=== PATIENT | female | born 1940 | race Hispanic/Latino ===

== ENCOUNTER 2018-11-05 14:19 | Emergency (ER) | payer MEDICARE ==
[~2018-11-05] VITALS: Ht 160 cm; Wt 64.9 kg
--- OUTSIDE RECORDS SUMMARY | 2018-11-05 14:21 | XMS REPORT | Summary of Care ---
Author Author JOEL PETIT M.D. Organization Unknown Address Unknown Phone Unavailable Care Team Providers Care Exhaust Emissions Automotive Technician Name Role Phone JOEL PETIT M.D. Unavailable Unavailable Liz Urban M.A. Unavailable Unavailable DAMASO EDWARDS AZEPIFANIO Unavailable Unavailable Unavailable Unavailable Functional Status Name Dates Details Functional status health issues are not documented Status: Name Dates Details Cognitive status health issues are not documented Status: Problems Name Dates Details Bilateral carpal tunnel syndrome (354.0, G56.03) Status: Active Medications Name Dates Details Toy Aspirin TABS Active Amlodipine-Atorvastatin 5-10 MG Oral Tablet * Refills: 0 Active Carvedilol TABS * Refills: 0 Active Acetaminophen-Codeine #3 300-30 MG Oral Tablet TAKE 1 TABLET EVERY 4 TO 6 HOURS NEEDED. * Quantity: 40 Refills: 0 JOEL PETIT M.D. * Start : 06-May-2017 Active Allergies and Adverse Reactions Name Dates Details No Known Drug Allergies (Allergy) Status: Active Procedures Procedure Dates Details History of ankle surgery Completed History of bypass Completed Immunization Name Dates Details Immunizations not documented Family History Name Dates Details Family history of cardiac disorder (V17.49, Z82.49) Status: Active Family history of diabetes mellitus (V18.0, Z83.3) Status: Active Name Dates Details Family history of cardiac disorder (V17.49, Z82.49) Status: Active Family history of diabetes mellitus (V18.0, Z83.3) Status: Active Social History Name Dates Details - Status: Name Dates Details Never smoker Vital Signs Date Test Result Details 5-[id number]-183200:00 BP Systolic 143 mm[Hg] Status: BP Diastolic 61 mm[Hg] Status: Heart Rate 70 /min Status: Results Date Description Value Details Results not documented Plan of Care Name Dates Details Planned Observations Planned Goals not documented Interventions Provided Medication Changes* Acetaminophen-Codeine #3 300-30 MG Oral Tablet - Start Instructions Name Dates Details Instructions not documented Encounters Appointment; JOEL PETIT M.D. Encounter Diagnosis: Problem not documented On: 24-Mar-2017 9:30 Appointment; ABELINO MCKENZIE M.D. Encounter Diagnosis: Problem not documented On: 01-Apr-2017 10:15 Appointment; JOEL PETIT M.D. Encounter Diagnosis: Problem not documented On: 14-Apr-2017 10:00 Appointment; JOEL PETIT M.D. Encounter Diagnosis: Problem not documented On: 05-May-2017 13:00
[2018-11-05 15:07] LABS: BILIRUBIN,URINE NEGATIVE (NEGATIVE); CLARITY,URINE SL CLOUDY (CLEAR); COLOR,URINE YELLOW (YELLOW); KETONES,URINE 1+ (NEGATIVE); LEUKOCYTE ESTERASE ,URINE TRACE (NEGATIVE); NITRITE,URINE NEGATIVE (NEGATIVE); PROTEIN,URINE DIPSTICK 1+ (NEGATIVE); URINE UROBILINOGEN 1 mg/dL (0.2 - 1)
[2018-11-05 15:19] LABS: WBC,URINE (MAN) 0-5 /HPF (0-5)
[2018-11-05 15:20] LABS: BACTERIA,URINE MODERATE /HPF; EPITHELIAL CELLS,URINE MODERATE /LPF
--- NOTE | 2018-11-05 15:32 | Diagnostic Imaging Report ---
EXAMINATION: PA and lateral views of the chest. COMPARISON: None CLINICAL HISTORY: Concern for pneumonia DISCUSSION: Lungs are well-inflated and without focal airspace consolidation, pleural effusion, or pneumothorax. Cardiomediastinal contour and pulmonary vasculature are within normal limits. Postsurgical changes with multiple median sternotomy wires. IMPRESSION: No consolidative pneumonia per clinical query. Signed by: Dr. Isac Wells M.D. on 11/05/2018 3:29 PM
--- NOTE | 2018-11-05 15:47 | NUR ---
PT STATES SHE TOOK HER BP MEDS TODAY
[2018-11-05 15:48] LABS: BASOPHILS % 0.5 % (0.0-1.0); EOSINOPHILS # (AUTO) 0.1 (0.0-0.4); EOSINOPHILS % 1.1 % (0.0-6.0); HEMATOCRIT 34.9 % (34.2-44.1); HEMOGLOBIN 11.5 g/dL (12.0-16.0); LYMPHOCYTES # (AUTO) 1.8 (1.0-3.2); MEAN CORPUSCULAR HEMOGLOBIN 28.8 pg (28-32); MEAN CORPUSCULAR VOLUME 87.3 fL (81-99); MONOCYTES # (AUTO) 1.1 (0.2-0.8); MONOCYTES % 13.3 % (4.4-11.3); NEUTROPHILS # (AUTO) 5.4 (2.1-6.9); NEUTROPHILS % 63.5 % (38.7-80.0); PLATELET COUNT 210 x10e3/uL (140-360); RED CELL DISTRIBUTION WIDTH 12.9 % (11.7-14.4)
[2018-11-05 15:58] LABS: INR 0.95; PROTHROMBIN TIME 13.2 seconds (11.9-14.5)
[2018-11-05 15:59] LABS: PARTIAL THROMBOPLASTIN TIME 33.1 seconds (23.8-35.5)
[2018-11-05 16:06] LABS: ALANINE AMINOTRANSFERASE 14 IU/L (0-55); ALBUMIN 3.4 g/dL (3.5-5.0); ALBUMIN/GLOBULIN RATIO 1.1 (0.8-2.0); ALKALINE PHOSPHATASE 82 IU/L (40-150); ANION GAP 11.5 mmol/L (8-16); BLOOD UREA NITROGEN 18 mg/dL (7-26); BUN/CREATININE RATIO 21 (6-25); CALCIUM 9.4 mg/dL (8.4-10.2); CARBON DIOXIDE 26 mmol/L (22-29); CHLORIDE 103 mmol/L (98-107); CREATINE KINASE 75 IU/L (29-168); CREATININE, SERUM 0.87 mg/dL (0.57-1.11); EST GLOMERULAR FILTRATION RATE > 60 ML/MIN (60-); GLUCOSE 198 mg/dL (74-118); POTASSIUM 3.5 mmol/L (3.5-5.1); SODIUM 137 mmol/L (136-145)
[2018-11-05 17:28] VITALS: BP 125/76
== END 2018-11-05 17:39 | disposition home or self-care (01) ==
LOC: ER 14:19
DX: R07.89 Other chest pain (principal); R05 Cough; J20.9 Acute bronchitis, unspecified; I10 Essential (primary) hypertension; E11.9 Type 2 diabetes mellitus without complications; I50.9 Heart failure, unspecified; Z95.1 Presence of aortocoronary bypass graft
CPT/HCPCS: 36415; 71046; 80053; 81001; 82550; 82553; 83880; 84484; 85025; 85610; 85730; 93005; 99284

== ENCOUNTER 2018-11-07 10:37 | Inpatient (IN) | payer MEDICARE, OTHER ==
[~2018-11-07] VITALS: Ht 160 cm; Wt 67.1 kg
--- OUTSIDE RECORDS SUMMARY | 2018-11-07 10:40 | XMS REPORT ---
[facility] Address Unknown Phone Unavailable Care Team Providers Care Eye Specialist Name Role Phone June HERRING Unavailable Unavailable Problems This patient has no known problems. Allergies, Adverse Reactions, Alerts This patient has no known allergies or adverse reactions. Medications This patient has no known medications. Results Test Description Test Time Test Comments Text Results Atomic Results Result Comments CHEST 2 VIEWS 2018-11-05 15:26:00 [place] [id number] Patient Name: RACHELLE GRANADOS MR #: [id number] : 1940 Age/Sex: 77/F Req #: [id number] Adm Physician: Ordered by: ANT HERRING MD Report #: [id number] Location: ER Room/Bed: Procedure: [id number] DX/CHEST 2 VIEWS Exam Date: 11/05/18 Exam Time: 1500 REPORT STATUS: Signed EXAMINATION: PA and lateral views of the chest. CO MPARISON: None CLINICAL HISTORY: Concern for pneumonia DISCUSSION: Lungs are well-inflated and without focal airspace consolidation, pleural effusion, or pneumothorax. Cardiomediastinal contour and pulmonary vasculature are within normal limits. Postsurgical changes with multiple median sternotomy wires. IMPRESSION: No consolidative pneumonia per clinical query. Signed by: Dr. Nafisa Colon M.D. on 11/05/2018 3:29 PM Dictated By: NAFISA COLON MD 1529 Transcribed By: SUREKHA on 9 1529 COPY TO: ANT HERRING MD
[2018-11-07] MEDS ORDERED: ASPIRIN 81 MG CHEW TAB PO ONE (11:00)
[2018-11-07 11:32] LABS: BASOPHILS # (AUTO) 0.1 (0.0-0.1); BASOPHILS % 0.6 % (0.0-1.0); EOSINOPHILS # (AUTO) 0.2 (0.0-0.4); EOSINOPHILS % 1.9 % (0.0-6.0); HEMATOCRIT 36.2 % (34.2-44.1); HEMOGLOBIN 12.2 g/dL (12.0-16.0); LYMPHOCYTES % 18.4 % (18.0-39.1); MEAN CORPUSCULAR HEMOGLOBIN 29.1 pg (28-32); MEAN CORPUSCULAR HGB CONC 33.7 g/dL (31-35); MEAN CORPUSCULAR VOLUME 86.4 fL (81-99); MONOCYTES # (AUTO) 1.3 (0.2-0.8); MONOCYTES % 11.9 % (4.4-11.3); NEUTROPHILS % 65.8 % (38.7-80.0); PLATELET COUNT 263 x10e3/uL (140-360); RED BLOOD COUNT 4.19 x10e6/uL (3.6-5.1); RED CELL DISTRIBUTION WIDTH 12.9 % (11.7-14.4)
[2018-11-07 11:45] LABS: BILIRUBIN,URINE SMALL (NEGATIVE); CLARITY,URINE CLEAR (CLEAR); COLOR,URINE YELLOW (YELLOW); KETONES,URINE 1+ (NEGATIVE); LEUKOCYTE ESTERASE ,URINE TRACE (NEGATIVE); NITRITE,URINE NEGATIVE (NEGATIVE); PROTEIN,URINE DIPSTICK 1+ (NEGATIVE); URINE UROBILINOGEN 4 mg/dL (0.2 - 1)
[2018-11-07 11:51] LABS: INR 0.96; PROTHROMBIN TIME 13.3 seconds (11.9-14.5)
[2018-11-07 11:52] LABS: PARTIAL THROMBOPLASTIN TIME 37.5 seconds (23.8-35.5)
[2018-11-07 11:55] LABS: ALANINE AMINOTRANSFERASE 16 IU/L (0-55); ALBUMIN 3.4 g/dL (3.5-5.0); ALBUMIN/GLOBULIN RATIO 0.9 (0.8-2.0); ALKALINE PHOSPHATASE 88 IU/L (40-150); ANION GAP 14.5 mmol/L (8-16); BLOOD UREA NITROGEN 12 mg/dL (7-26); BUN/CREATININE RATIO 15 (6-25); CARBON DIOXIDE 24 mmol/L (22-29); CHLORIDE 100 mmol/L (98-107); CREATINE KINASE 97 IU/L (29-168); CREATININE, SERUM 0.78 mg/dL (0.57-1.11); EST GLOMERULAR FILTRATION RATE > 60 ML/MIN (60-); GLUCOSE 139 mg/dL (74-118); POTASSIUM 3.5 mmol/L (3.5-5.1); SODIUM 135 mmol/L (136-145)
[2018-11-07 12:00] LABS: BACTERIA,URINE MODERATE /HPF; EPITHELIAL CELLS,URINE MANY /LPF
[2018-11-07 12:05] LABS: B-TYPE NATRIURETIC PEPTIDE2 231.6 pg/mL (0-100)
[2018-11-07 12:17] LABS: THYROID STIMULATING HORMONE 0.678 uIU/mL (0.350-4.940)
[2018-11-07] MEDS ORDERED: DEXTROSE 50% SYRINGE 50 ML IV PRN (12:45)
--- NOTE | 2018-11-07 12:58 | Diagnostic Imaging Report ---
EXAMINATION: CHEST SINGLE (PORTABLE) INDICATION: ^ERMD ORDER ^[id number] ^[id number] ^Y COMPARISON: 11/05/2018 FINDINGS: AP view TUBES and LINES: None. LUNGS: Lungs are well inflated. Mild left basilar haziness. PLEURA: No pleural effusion or pneumothorax. HEART AND MEDIASTINUM: The cardiomediastinal silhouette is unremarkable. Median sternotomy wires are unchanged. BONES AND SOFT TISSUES: No acute osseous lesion. Soft tissues are unremarkable. UPPER ABDOMEN: No free air under the diaphragm. IMPRESSION: Mildly increased left basilar haziness, representing atelectasis and/or developing pneumonia in the appropriate clinical context. Signed by: Dr. Helder Barakat MD on 11/07/2018 12:54 PM
[2018-11-07] MEDS: CEFTRIAXONE SOD 1 GM/NS 50 ML 50 ML IV SCH (13:00)
[2018-11-07] MEDS: AZITHROMYCIN 500MG/NS 250 ML 250 ML IV SCH (14:30)
[2018-11-07] MEDS ORDERED: COMBIGAN EYE DRO5 ML (15:04)
[2018-11-07] MEDS ORDERED: GLIPIZIDE5 MG (15:04)
[2018-11-07] MEDS ORDERED: METFORMIN HCL500 MG (15:04)
[2018-11-07] MEDS ORDERED: MYRBETRIQ25 MG (15:04)
[2018-11-07] MEDS ORDERED: KETOROLAC TROMET5 ML (15:04)
[2018-11-07] MEDS ORDERED: DEXILANT30 MG (15:04)
[2018-11-07] MEDS ORDERED: CARVEDILOL12.5 MG (15:04)
[2018-11-07] MEDS ORDERED: FAMOTIDINE20 MG (15:04)
[2018-11-07 15:15] VITALS: BP 154/70
[2018-11-07 16:30] VITALS: BP 154/70
[2018-11-07] MEDS: INSULIN LISPRO 100 UNIT/1 ML 3ML VIAL SQ SCH ×2 (16:30→21:00)
[2018-11-07] MEDS: BUDESONIDE 0.25 MG/2 ML NEB NEB SCH (19:00)
[2018-11-07] MEDS: ALBUTEROL/IPRATROPIUM 3 ML NEB NEB SCH ×2 (19:00→19:20)
[2018-11-07 19:42] LABS: CREATINE KINASE MB 2.1 ng/mL (0-5.0)
[2018-11-07 20:10] VITALS: BP 134/98
[2018-11-07 20:32] VITALS: BP 134/98
--- NOTE | 2018-11-07 20:43 | Diagnostic Imaging Report ---
EXAM: CT Chest WITHOUT contrast 11/07/2018 6:34 PM INDICATION: ^?PNEUMONIA ^[id number] ^[id number] COMPARISON: Chest radiograph 11/07/2018 TECHNIQUE: Chest was scanned utilizing a multidetector helical scanner from the lung apex through the level of the adrenal glands without administration of IV contrast. Absence of intravenous contrast decreases sensitivity for detection of lymphadenopathy and vascular pathology. Coronal and sagittal reformations were obtained. Routine protocol was performed. IV CONTRAST: None COMPLICATIONS: None RADIATION DOSE: Total DLP: 455.2 mGy*cm Estimated effective dose: (DLP x 0.015 x size factor) mSv CTDIvol has been reviewed. It is below the limits set by the Radiation Protocol Committee (RPC). FINDINGS: LINES/ TUBES: None. LUNGS AND AIRWAYS: Small peripheral consolidation with air bronchogram in the posterior right upper lobe abutting the fissure on series 3, image 39. Bilateral upper lobe bronchiectasis with peribronchial wall thickening. Small consolidation in the lingula on series 3, image 61. Small tree-in-bud pulmonary nodules in the posterior left lower lobe on image 79 and right lower lobe on image 80. Mild scarring in both lower lobes. PLEURA: The pleural spaces are clear. HEART AND MEDIASTINUM: The thyroid gland is normal. Multiple noncalcified mildly enlarged mediastinal lymph nodes, for example there is a 1.5 cm right lower paratracheal lymph node on series 2, image 43 and the left para-aortic lymph node measuring 0.8 cm on image 41. Cardiomegaly. There is no pericardial effusion. Extensive coronary artery calcification, status post average. The thoracic aorta is tortuous but normal in size and associated with moderate atherosclerotic calcifications. The main pulmonary artery is normal in size measuring 2.7 cm in diameter. Small hiatal hernia. Small fat-containing left posterior Bochdalek hernia. UPPER ABDOMEN: Fatty infiltration of the pancreas. Moderate calcifications of the visualized abdominal aorta. Few calcified lymph granuloma seen in the spleen. BONES: The visualized bony thorax is within normal limits. SOFT TISSUES: Unremarkable. IMPRESSION: Small consolidation in the right upper lobe and lingula and faint centrilobular nodules in both posterior lower lobes are suggestive of multifocal pneumonia and/or aspiration pneumonitis. Small hiatal hernia. Mildly enlarged mediastinal lymph nodes, likely reactive. Signed by: Dr. Hilary Berg M.D. on 11/07/2018 8:40 PM
[2018-11-08] VITALS (9 sets, daily range): BP systolic 111–154; BP diastolic 53–86
[2018-11-08] MEDS: ALBUTEROL/IPRATROPIUM 3 ML NEB NEB SCH ×4 (00:30→20:25)
[2018-11-08] MEDS: CEFTRIAXONE SOD 1 GM/NS 50 ML 50 ML IV SCH ×2 (00:40→12:35)
--- NOTE | 2018-11-08 01:15 | History and Physical ---
CHIEF COMPLAINT: Shortness of breath and wheezing. HISTORY OF PRESENT ILLNESS: Ms. Disla is a 77-year-old female. She presented to the emergency room with four days of cough, wheezing, and shortness of breath. She reports that these symptoms started four days ago. She came to the emergency room and was given possibly antibiotics, however, she never felt better. She started having cough and wheezing, so she decided to come to the emergency room. She denies any chest pain. She was running fever at home. In the emergency room, her temperature was 99.4. She denies any nausea or vomiting. REVIEW OF SYSTEMS: GENERAL: Having fever and chills. HEAD: Denies any head trauma. ENT: Denies any earaches. CVS: Denies any chest pain. RESPIRATORY: Shortness of breath. GI: Denies any nausea or vomiting. The rest of the review of systems are negative except as in the HPI. PAST MEDICAL HISTORY: Hypertension, coronary artery disease, diabetes. PAST SURGICAL HISTORY: Stent in 2014, CABG in 2009. Other past surgical history hysterectomy and carpal tunnel surgery. FAMILY AND SOCIAL HISTORY: She does not smoke. Does not drink. Denies any alcohol use. PHYSICAL EXAMINATION: VITAL SIGNS: Temperature 98.6, pulse of 83, blood pressure 154/70, respiratory rate of 18, O2 saturation 98% on 2 L. HEENT: Head is atraumatic, normocephalic. NECK: Supple. CHEST: Wheezing bilaterally and reduced air entry. HEART: S1, S2 audible. ABDOMEN: Soft, nontender, nondistended. EXTREMITIES: No pedal edema. NEUROLOGIC: Awake and alert. No focal neurologic deficits. LABORATORY [place]: [place] [address], hemoglobin 12.2, platelets 263. Chemistry; sodium 135, potassium 3.5, chloride 100, bicarb 24, BUN 12, creatinine 0.78, glucose 139. BNP 231. AST and ALT normal. Chest x-ray showing increasing haziness in the left side. I have reviewed the chest x-ray films. Blood cultures and urine cultures are pending. ASSESSMENT: Ms. Disla is a 77-year-old female. She presented with cough, wheezing, shortness of breath, likely has pneumonia. PLAN: 1. I will do a CT chest without contrast. 2. Nebulizer treatment and Pulmicort nebs. 3. Oxygen as needed to keep the O2 saturation more than or equal to 92%. 4. I agree with Rocephin and azithromycin for community-acquired pneumonia. 5. I will check influenza serology. MD SUSAN Giang/MODL /[id number]
[2018-11-08 04:04] LABS: BASOPHILS # (AUTO) 0.1 (0.0-0.1); BASOPHILS % 0.7 % (0.0-1.0); EOSINOPHILS # (AUTO) 0.2 (0.0-0.4); EOSINOPHILS % 2.5 % (0.0-6.0); HEMATOCRIT 33.5 % (34.2-44.1); LYMPHOCYTES # (AUTO) 2.2 (1.0-3.2); MEAN CORPUSCULAR HEMOGLOBIN 28.4 pg (28-32); MEAN CORPUSCULAR HGB CONC 32.8 g/dL (31-35); MEAN CORPUSCULAR VOLUME 86.6 fL (81-99); MONOCYTES # (AUTO) 1.1 (0.2-0.8); MONOCYTES % 12.4 % (4.4-11.3); NEUTROPHILS # (AUTO) 5.1 (2.1-6.9); NEUTROPHILS % 57.4 % (38.7-80.0); PLATELET COUNT 236 x10e3/uL (140-360); RED BLOOD COUNT 3.87 x10e6/uL (3.6-5.1); RED CELL DISTRIBUTION WIDTH 12.9 % (11.7-14.4)
[2018-11-08 04:50] LABS: CREATINE KINASE MB 1.4 ng/mL (0-5.0)
[2018-11-08 04:51] LABS: ALANINE AMINOTRANSFERASE 15 IU/L (0-55); ALBUMIN 2.9 g/dL (3.5-5.0); ALBUMIN/GLOBULIN RATIO 0.9 (0.8-2.0); ALKALINE PHOSPHATASE 74 IU/L (40-150); ANION GAP 15.2 mmol/L (8-16); BLOOD UREA NITROGEN 9 mg/dL (7-26); BUN/CREATININE RATIO 13 (6-25); CALCIUM 9.5 mg/dL (8.4-10.2); CARBON DIOXIDE 24 mmol/L (22-29); CHLORIDE 104 mmol/L (98-107); CREATININE, SERUM 0.68 mg/dL (0.57-1.11); EST GLOMERULAR FILTRATION RATE > 60 ML/MIN (60-); GLUCOSE 131 mg/dL (74-118); POTASSIUM 3.2 mmol/L (3.5-5.1); SODIUM 140 mmol/L (136-145)
[2018-11-08] MEDS: BUDESONIDE 0.25 MG/2 ML NEB NEB SCH ×2 (07:00→20:25)
[2018-11-08] MEDS: BRIMONIDINE/TIMOLOL (OPTH SOLN 5 ML DRPETTE OP SCH (09:00)
[2018-11-08] MEDS: FAMOTIDINE 20 MG TAB PO SCH (09:00)
[2018-11-08] MEDS: AZITHROMYCIN 500MG/NS 250 ML 250 ML IV SCH (09:05)
[2018-11-08] MEDS: GLIPIZIDE 5 MG TAB PO SCH ×2 (09:05→17:03)
[2018-11-08] MEDS: PANTOPRAZOLE SOD 40 MG TABEC PO SCH (09:05)
[2018-11-08] MEDS: INSULIN LISPRO 100 UNIT/1 ML 3ML VIAL SQ SCH ×4 (09:06→21:40)
[2018-11-08] MEDS: CARVEDILOL 12.5 MG TAB PO SCH (09:07)
[2018-11-08] MEDS ORDERED: GUAIFENESIN/CODEINE 10 ML CUP PO PRN (11:00)
[2018-11-08] MEDS ORDERED: SODIUM CHLORIDE 0.9% 250ML 250 ML ONE (12:23)
[2018-11-08] MEDS ORDERED: VANCOMYCIN 1GM/NS 250 ML 250 ML IV ONE (15:30)
[2018-11-08] MEDS: VANCOMYCIN 1GM/NS 250 ML 250 ML IV SCH (20:30)
[2018-11-08] MEDS: HEPARIN SOD (PORCINE) 5,000 UNIT/ML VIAL SC SCH (21:41)
[2018-11-09] MEDS: CEFTRIAXONE SOD 1 GM/NS 50 ML 50 ML IV SCH ×2 (00:49→13:04)
[2018-11-09] MEDS: ALBUTEROL/IPRATROPIUM 3 ML NEB NEB SCH ×4 (01:00→20:15)
--- NOTE | 2018-11-09 02:20 | Consultation ---
DATE OF CONSULTATION: HISTORY OF PRESENT ILLNESS: The patient is here because she states that she has been sick for the last week or so with some cough, usually, it was dry and then found to have productive. There is no fever, chills, shortness of breath, or wheezing. Not feeling well. Had to come to the hospital. The patient was admitted. PAST MEDICAL HISTORY: Coronary artery disease, diabetes mellitus, and hypertension. PAST SURGICAL HISTORY: CABG. ALLERGIES: NKA. SOCIAL HISTORY: There is no smoking, drug abuse, or alcohol abuse. FAMILY HISTORY: Hypertension. REVIEW OF SYSTEMS: HEENT: There is no headache, visual changes, or hearing changes. GI: There is no nausea, no vomiting, or no diarrhea. CARDIAC: There is no arrhythmia. NEURO: No seizure activity. SKIN: There is no other rash. MEDICATIONS: She is on glipizide, insulin, ceftriaxone, and azithromycin. LABORATORY DATA: Reviewed. Blood cultures are showing gram-positive cocci. Her white count is 10.59. Sodium 140, potassium 3.2, and creatinine 0.68. Influenza A and B is negative. CT of the chest showed small consolidation in the right upper lobe and multifocal pneumonia noted in both posterior lobes. PHYSICAL EXAMINATION: GENERAL: She is currently alert, oriented, does not seem to be in acute distress. VITAL SIGNS: Stable, currently afebrile. HEENT: She is not icteric. NECK: Supple. CHEST: Few crackles bilaterally. COR: S1 and S2. No S3, S4, or murmur. ABDOMEN: Soft. Bowel sounds present. No tenderness. EXTREMITIES: No edema. IMPRESSION: Pneumonia and gram-positive bacteremia could be the source of the bacteria. I agree with Rocephin. We will add vancomycin at this time being. We will discontinue azithromycin. We will see how she is going to do over the next day or so. We will follow vancomycin trough. Further recommendation depending on the finding of the bacteria and the pathogen. We will follow. MD SKIP Nogueira/ERNESTO /[id number]
[2018-11-09 04:27] VITALS: BP 112/54
[2018-11-09] MEDS: VANCOMYCIN 1GM/NS 250 ML 250 ML IV SCH ×2 (05:22→20:30)
[2018-11-09 05:33] LABS: BASOPHILS # (AUTO) 0.1 (0.0-0.1); BASOPHILS % 0.8 % (0.0-1.0); EOSINOPHILS # (AUTO) 0.2 (0.0-0.4); HEMATOCRIT 32.9 % (34.2-44.1); HEMOGLOBIN 11.1 g/dL (12.0-16.0); LYMPHOCYTES # (AUTO) 2.4 (1.0-3.2); LYMPHOCYTES % 26.5 % (18.0-39.1); MEAN CORPUSCULAR HEMOGLOBIN 29.1 pg (28-32); MEAN CORPUSCULAR HGB CONC 33.7 g/dL (31-35); MEAN CORPUSCULAR VOLUME 86.1 fL (81-99); MONOCYTES # (AUTO) 0.9 (0.2-0.8); MONOCYTES % 10.2 % (4.4-11.3); NEUTROPHILS # (AUTO) 5.3 (2.1-6.9); NEUTROPHILS % 58.4 % (38.7-80.0); PLATELET COUNT 287 x10e3/uL (140-360); RED BLOOD COUNT 3.82 x10e6/uL (3.6-5.1)
[2018-11-09 05:57] LABS: ANION GAP 12.3 mmol/L (8-16); BLOOD UREA NITROGEN 7 mg/dL (7-26); BUN/CREATININE RATIO 11 (6-25); CALCIUM 9.3 mg/dL (8.4-10.2); CARBON DIOXIDE 26 mmol/L (22-29); CHLORIDE 105 mmol/L (98-107); CREATININE, SERUM 0.66 mg/dL (0.57-1.11); EST GLOMERULAR FILTRATION RATE > 60 ML/MIN (60-); GLUCOSE 134 mg/dL (74-118); POTASSIUM 3.3 mmol/L (3.5-5.1); SODIUM 140 mmol/L (136-145)
[2018-11-09 08:00] VITALS: BP 134/63
[2018-11-09] MEDS: INSULIN LISPRO 100 UNIT/1 ML 3ML VIAL SQ SCH ×4 (08:47→20:44)
[2018-11-09] MEDS: GLIPIZIDE 5 MG TAB PO SCH ×2 (08:47→17:08)
[2018-11-09] MEDS: PANTOPRAZOLE SOD 40 MG TABEC PO SCH (08:47)
[2018-11-09] MEDS: CARVEDILOL 12.5 MG TAB PO SCH (08:48)
[2018-11-09] MEDS: HEPARIN SOD (PORCINE) 5,000 UNIT/ML VIAL SC SCH ×2 (08:48→21:08)
[2018-11-09] MEDS: FAMOTIDINE 20 MG TAB PO SCH (08:48)
[2018-11-09 08:51] VITALS: BP 134/63
[2018-11-09] MEDS: BRIMONIDINE/TIMOLOL (OPTH SOLN 5 ML DRPETTE OP SCH (09:00)
[2018-11-09 11:31] LABS: ANISOCYTOSIS SLIGHT; EOSINOPHILS % (MANUAL) 2 % (0-7); HYPOCHROMASIA SLIGHT; LYMPHOCYTES % (MANUAL) 29 % (19-48); MONOCYTES % (MANUAL) 12 % (3.4-9.0); NEUTROPHILS % (MANUAL) 57 % (40-74); PLATELET ESTIMATE ADEQUATE; PLATELET MORPHOLOGY COMMENT NORMAL
[2018-11-09 16:00] VITALS: BP 137/61
[2018-11-09 20:00] VITALS: BP 160/70
[2018-11-09] MEDS: BUDESONIDE 0.25 MG/2 ML NEB NEB SCH (20:30)
[2018-11-09 20:54] VITALS: BP 157/66
[2018-11-10] VITALS (8 sets, daily range): BP systolic 114–163; BP diastolic 55–66
[2018-11-10] MEDS: ALBUTEROL/IPRATROPIUM 3 ML NEB NEB SCH ×4 (01:00→18:43)
[2018-11-10] MEDS: CEFTRIAXONE SOD 1 GM/NS 50 ML 50 ML IV SCH ×2 (01:00→12:07)
[2018-11-10] MEDS: BUDESONIDE 0.25 MG/2 ML NEB NEB SCH ×2 (07:00→19:00)
[2018-11-10] MEDS: PANTOPRAZOLE SOD 40 MG TABEC PO SCH (08:55)
[2018-11-10] MEDS: GLIPIZIDE 5 MG TAB PO SCH ×2 (08:55→16:39)
[2018-11-10] MEDS: CARVEDILOL 12.5 MG TAB PO SCH (08:55)
[2018-11-10] MEDS: FAMOTIDINE 20 MG TAB PO SCH (08:55)
[2018-11-10] MEDS: HEPARIN SOD (PORCINE) 5,000 UNIT/ML VIAL SC SCH ×2 (09:00→21:00)
[2018-11-10] MEDS: VANCOMYCIN 1GM/NS 250 ML 250 ML IV SCH (09:13)
[2018-11-10] MEDS: BRIMONIDINE/TIMOLOL (OPTH SOLN 5 ML DRPETTE OP SCH (09:13)
[2018-11-10] MEDS: INSULIN LISPRO 100 UNIT/1 ML 3ML VIAL SQ SCH ×4 (09:50→21:00)
[2018-11-10] MEDS ORDERED: POTASSIUM CHLORIDE 20 MEQ TAB CR PO PRN (10:45)
[2018-11-10] MEDS ORDERED: POTASSIUM CHLORIDE 20 MEQ TAB CR PO NR (11:00)
[2018-11-10] MEDS: ACETAMINOPHEN 325 MG TAB PO PRN ×3 (14:14→21:07)
[2018-11-11 00:09] VITALS: BP 128/58
[2018-11-11] MEDS: CEFTRIAXONE SOD 1 GM/NS 50 ML 50 ML IV SCH (00:35)
[2018-11-11] MEDS: ALBUTEROL/IPRATROPIUM 3 ML NEB NEB SCH ×3 (00:57→12:45)
[2018-11-11 04:58] LABS: BASOPHILS # (AUTO) 0.1 (0.0-0.1); BASOPHILS % 0.5 % (0.0-1.0); EOSINOPHILS # (AUTO) 0.2 (0.0-0.4); EOSINOPHILS % 1.9 % (0.0-6.0); HEMATOCRIT 34.4 % (34.2-44.1); LYMPHOCYTES # (AUTO) 2.2 (1.0-3.2); LYMPHOCYTES % 22.7 % (18.0-39.1); MEAN CORPUSCULAR HEMOGLOBIN 28.4 pg (28-32); MEAN CORPUSCULAR VOLUME 88.9 fL (81-99); MONOCYTES # (AUTO) 0.9 (0.2-0.8); MONOCYTES % 8.9 % (4.4-11.3); NEUTROPHILS # (AUTO) 6.1 (2.1-6.9); NEUTROPHILS % 63.6 % (38.7-80.0); PLATELET COUNT 286 x10e3/uL (140-360); RED BLOOD COUNT 3.87 x10e6/uL (3.6-5.1); RED CELL DISTRIBUTION WIDTH 12.9 % (11.7-14.4)
[2018-11-11 05:20] LABS: ANION GAP 12.5 mmol/L (8-16); BLOOD UREA NITROGEN 12 mg/dL (7-26); BUN/CREATININE RATIO 18 (6-25); CALCIUM 9.5 mg/dL (8.4-10.2); CARBON DIOXIDE 26 mmol/L (22-29); CHLORIDE 106 mmol/L (98-107); CREATININE, SERUM 0.67 mg/dL (0.57-1.11); EST GLOMERULAR FILTRATION RATE > 60 ML/MIN (60-); GLUCOSE 148 mg/dL (74-118); POTASSIUM 3.5 mmol/L (3.5-5.1); SODIUM 141 mmol/L (136-145)
[2018-11-11 05:26] VITALS: BP 157/67
--- NOTE | 2018-11-11 06:40 | Diagnostic Imaging Report ---
EXAMINATION: CHEST 2 VIEWS INDICATION: ^f/u ^[id number] ^[id number] COMPARISON: 11/07/2018 FINDINGS: PA and lateral views TUBES and LINES: None. LUNGS: Lungs are well inflated. Improved or resolved mild left basilar haziness, seen on prior x-ray. PLEURA: No pleural effusion or pneumothorax. HEART AND MEDIASTINUM: The cardiac silhouette is enlarged. Unchanged median sternotomy wires. BONES AND SOFT TISSUES: No acute osseous lesion. Soft tissues are unremarkable. UPPER ABDOMEN: No free air under the diaphragm. IMPRESSION: Improved or resolved left basilar haziness, seen on prior exam. No focal consolidation. Signed by: Dr. Helder Barakat MD on 11/11/2018 6:36 AM
[2018-11-11] MEDS: BUDESONIDE 0.25 MG/2 ML NEB NEB SCH (07:00)
[2018-11-11] MEDS: INSULIN LISPRO 100 UNIT/1 ML 3ML VIAL SQ SCH (07:30)
[2018-11-11 08:42] VITALS: BP 119/53
[2018-11-11 08:52] LABS: ANISOCYTOSIS SLIGHT; LYMPHOCYTES % (MANUAL) 27 % (19-48); MONOCYTES % (MANUAL) 9 % (3.4-9.0); NEUTROPHILS % (MANUAL) 63 % (40-74); PLATELET ESTIMATE ADEQUATE; PLATELET MORPHOLOGY COMMENT NORMAL; RBC MORPHOLOGY COMMENT NORMAL
[2018-11-11] MEDS: BRIMONIDINE/TIMOLOL (OPTH SOLN 5 ML DRPETTE OP SCH (08:59)
[2018-11-11] MEDS: GLIPIZIDE 5 MG TAB PO SCH (08:59)
[2018-11-11] MEDS: PANTOPRAZOLE SOD 40 MG TABEC PO SCH (08:59)
[2018-11-11] MEDS: FAMOTIDINE 20 MG TAB PO SCH (08:59)
[2018-11-11 09:00] VITALS: BP 119/53
[2018-11-11] MEDS: CARVEDILOL 12.5 MG TAB PO SCH (09:01)
[2018-11-11] MEDS ORDERED: AUGMENTIN 875-1 EACH PO ×3 (09:20→09:38)
[2018-11-11] MEDS: HEPARIN SOD (PORCINE) 5,000 UNIT/ML VIAL SC SCH (09:52)
--- NOTE | 2018-11-12 07:31 | Discharge Summary ---
The patient visiting from [place]. Admitted with community-acquired pneumonia, four days of cough and wheezing, and shortness of breath, was admitted on 11/07. Temperature was 99.4. She has bilateral patchy pneumonia. Blood cultures were positive for a Staph hominis, which was felt to be a skin contaminant. The patient gradually improved, was treated with vancomycin and Rocephin. Vancomycin was discontinued. She also received aztreonam. The patient is discharged. She is diabetic, to resume her home medications, in addition to a prescription for Augmentin and continue Combigan eyedrops, Coreg 12.5, Dexilant, Pepcid, glipizide 5 mg, ketorolac eye drops, metformin 500, and Myrbetriq 25 mg a day. Discharge, much improved. Follow up with Dr. Wray in approximately one month time. Echocardiogram report is still pending at the time of this dictation. MD CHAVA Sargent/ERNESTO /[id number]
== END 2018-11-11 11:31 | disposition home or self-care (01) | DRG 195 ==
LOC: ER 10:37 → ERHOLD 12:53 → MED/SURG2 14:33
PROVIDERS: ADMIT Internal Medicine; ATTEND Internal Medicine
DX: J15.9 Unspecified bacterial pneumonia (principal); I25.10 Atherosclerotic heart disease of native coronary artery without angina pectoris; E11.9 Type 2 diabetes mellitus without complications; I10 Essential (primary) hypertension; Z95.1 Presence of aortocoronary bypass graft
CPT/HCPCS: 36415; 71045; 71046; 71250; 80048; 80053; 80202; 81001; 82550; 82553; 82948; 83036; 83605; 83735; 83880; 84443; 84484; 85025; 85610; 85730; 87040; 87070; 87071; 87086; 87186; 87205; 87400; 93005; 93306; 94640; 99284; J0456; J0696; J1644; J3370; J7050